=== PATIENT | male | born 1985 | race Caucasian/White ===

== ENCOUNTER 2017-06-13 15:11 | Emergency (ER) | payer OTHER ==
[~2017-06-13] VITALS: Ht 175.3 cm; Wt 86.2 kg
[~2017-06-13 15:11] MED LIST: IBUPROFEN800 MG PO; TRAMADOL HCL50 MG PO
== END 2017-06-13 15:25 | disposition home or self-care (01) ==
LOC: ED 15:11
DX: Z00.8 Encounter for other general examination (principal)

== ENCOUNTER 2017-07-05 21:19 | Emergency (ER) | payer OTHER ==
[~2017-07-05] VITALS: Ht 175.3 cm; Wt 86.2 kg
[2017-07-05] MEDS ORDERED: TRAMADOL HCL50 MG PO (22:40)
== END 2017-07-05 23:09 | disposition home or self-care (01) ==
LOC: ED 21:19
DX: S30.0XXA Contusion of lower back and pelvis, initial encounter (principal); F17.200 Nicotine dependence, unspecified, uncomplicated; W01.0XXA Fall on same level from slipping, tripping and stumbling without subsequent striking against object, initial encounter
CPT/HCPCS: 72100; 99283

== ENCOUNTER 2017-12-16 12:02 | Emergency (ER) | payer OTHER ==
[~2017-12-16] VITALS: Ht 175.3 cm; Wt 86.2 kg
--- OUTSIDE RECORDS SUMMARY | 2017-12-16 12:31 | XMS ---
Demographics + + + | Address | [address] | | | [place] [address] | + + + | Preferred Language | Unknown | + + + | Marital Status | Unknown | + + + | Anabaptism Affiliation | Unknown | + + + | Race | Unknown | + + + | Ethnic Group | Unknown | + + + Author + + + | Author | [facility] | + + + | Organization | [facility] | + + + | Address | 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 | Role | Phone | + + + + Unavailable | Unavailable | + + + + PROBLEMS Unknown Problems ALLERGIES No Known Allergies SOCIAL HISTORY Never Assessed PLAN OF CARE + +---------+ | Activity | Details | + +---------+ +---+ | | +---+ + + + | Follow Up | prn Reason:null | + + + VITAL SIGNS + + + + | Height | 69 in | 2017-06-13 | + + + + | Weight | 180.0 lbs | 2017-06-13 | + + + + | BMI | 26.58 kg/m2 | 2017-06-13 | + + + + | Temperature | 99.1 degrees Fahrenheit | 2017-06-13 | + + + + | Heart Rate | 67 /min | 2017-06-13 | + + + + | Blood pressure systolic | 125 mm Hg | 2017-06-13 | + + + + | Blood pressure diastolic | 80 mm Hg | 2017-06-13 | + + + + MEDICATIONS Unknown Medications RESULTS No Results PROCEDURES No Known procedures IMMUNIZATIONS No Known Immunizations"
== END 2017-12-16 13:54 | disposition home or self-care (01) ==
LOC: ED 12:02
DX: S06.0X0A Concussion without loss of consciousness, initial encounter (principal); F17.200 Nicotine dependence, unspecified, uncomplicated; W01.198A Fall on same level from slipping, tripping and stumbling with subsequent striking against other object, initial encounter
CPT/HCPCS: 70450; 99284